=== PATIENT | male | born 1955 | race African-American/Black ===

== ENCOUNTER 2017-10-04 13:49 | Emergency (ER) | payer OTHER ==
[2017-10-04] MEDS: IBUPROFEN 200 MG TAB PO (14:37)
[2017-10-04] MEDS: ACETAMINOPHEN 325 MG TAB PO (14:37)
== END 2017-10-04 15:53 | disposition home or self-care (01) ==
LOC: FTE 13:49
DX: M54.2 Cervicalgia (principal)
CPT/HCPCS: 72040; 72100; 73510; 99284-25